=== PATIENT | female | born 1985 | race Caucasian/White ===

== ENCOUNTER 2019-09-08 12:30 | Inpatient (IN) | payer BC, OTHER ==
[2019-09-08] MEDS ORDERED: LACTATED RINGERS 1,000 ML IV ONE ×3 (13:11→16:53)
--- NOTE | 2019-09-08 13:42 | P.HPOB ---
History of Present Illness H&P Date: 09/08/19 Chief Complaint: Ectopic This is a 34-year-old female 8 para 2 with a last menstrual period of 07/15/2019, who presents with a right tubal ectopic with heartbeat noted on ultrasound today. She denies any bleeding or cramping. She does have some slight pain on her left adnexal region. Patient underwent ultrasound today after she was seen at the care center and was told that she had a sac measuring 5 weeks but no pole noted. She was sent for official ultrasound and the findings did show a right tubal measuring 8 weeks with a heartbeat of 170s. Obstetrical history: . History of 2 vaginal deliveries at term. History of 2 termination of pregnancies and 3 miscarriages. Gynecologic history: No history of sexual transmitted diseases. She does have a history of a LEEP procedure in 2002 for high-grade. Social history: She is . She works part-time. Review of Systems Constitutional: Denies chills, Denies fever Eyes: denies blurred vision, denies pain Ears, nose, mouth and throat: Denies headache, Denies sore throat Cardiovascular: Denies chest pain, Denies shortness of breath Respiratory: Denies cough Gastrointestinal: Denies abdominal pain, Denies diarrhea, Denies nausea, Denies vomiting Genitourinary: Reports , Denies pelvic pain Past Medical History Past Medical History: No Reported History Additional Past Medical History / Comment(s): Right tubal ectopic History of Any Multi-Drug Resistant Organisms: None Reported Past Surgical History: Hernia Repair (Umbilical hernia repair) Additional Past Surgical History / Comment(s): D&C 2; LEEP procedure Past Psychological History: No Psychological Hx Reported Smoking Status: Former smoker Past Alcohol Use History: None Reported Past Drug Use History: None Reported Medications and Allergies Home Medications Medication Instructions Recorded Confirmed Type Aqd-[id number]-Xptcr Acid 1 cap PO DAILY 09/08/19 09/08/19 History [-U Capsule (formulary)] Allergies Allergy/AdvReac Type Severity Reaction Status Date / Time No Known Allergies Allergy Verified 09/08/19 13:02 Exam Osteopathic Statement: *. No significant issues noted on an osteopathic structural exam other than those noted in the History and Physical/Consult. Vital Signs Temp Pulse Resp BP Pulse Ox 09/08/19 13:04 98.3 F 90 16 131/80 100 Intake and Output 09/07/19 09/08/19 09/08/19 22:59 06:59 14:59 Other: Weight 65.8 kg HEENT: Within normal limits Heart: Regular rate and rhythm Lungs: Clear to auscultation bilaterally Abdomen: Soft, nontender Pelvic exam: Uterus is slightly enlarged, mid position, with no adnexal masses palpated. There is some tenderness noted slightly higher up in the right adnexal region. Extremities: Negative Homans Assessment and Plan (1) Ectopic Current Visit: Yes Status: Acute Code(s): O00.90 - UNSPECIFIED ECTOPIC WITHOUT INTRAUTERINE SNOMED Code(s): 16272976 Plan: Proceed with exploratory laparotomy with possible right salpingostomy, possible right salpingectomy. I have discussed the risks, benefits, and alternative therapies for the above- mentioned procedure and for both sedation/anesthesia as well as necessary blood products administration, if indicated, as they pertain to this patient. The patient has indicated her understanding and acceptance of the risks and procedures discussed.
[2019-09-08] MEDS ORDERED: fentaNYL (PF) 50 MCG/ML 2 ML AMP ONE (15:09)
[2019-09-08] MEDS ORDERED: MIDAZOLAM 2 MG/2 ML VIAL ONE (15:09)
[2019-09-08] MEDS ORDERED: PROPOFOL 10 MG/ML 20 ML VIAL IV ONE (15:09)
[2019-09-08] MEDS ORDERED: ROCURONIUM BROMIDE 10 MG/ML 5 ML VIAL IV ONE (15:09)
[2019-09-08] MEDS ORDERED: SUCCINYLCHOLINE CHLORIDE 100 MG/5 ML SYR IV ONE (15:09)
[2019-09-08] MEDS ORDERED: ceFAZolin 1,000 MG VIAL IVPB ONE (15:20)
--- NOTE | 2019-09-08 16:19 | P.OP ---
Date of Procedure: 09/08/19 Preoperative Diagnosis: Ectopic Postoperative Diagnosis: Right tubal ectopic Left tubal hydrosalpinx Procedure(s) Performed: Exploratory laparotomy Right partial salpingectomy Drainage of left hydrosalpinx Anesthesia: DORI Surgeon: Penelope De Leon Nutrition Representative #1: Lino Orosco Estimated Blood Loss (ml): 30 Pathology: other (Right tubal ectopic with portion of right fallopian tube) Condition: stable Disposition: floor Indications for Procedure: This is a 34-year-old female 8 para 2 who presents after ultrasound today showing a right tubal ectopic with a heartbeat measuring 8 weeks. She denied any bleeding or significant pain. She has consented to an exploratory laparotomy with possible right salpingostomy, possible right salpingectomy. I have discussed the risks, benefits, and alternative therapies for the above- mentioned procedure and for both sedation/anesthesia as well as necessary blood products administration, if indicated, as they pertain to this patient. The patient has indicated her understanding and acceptance of the risks and procedures discussed. Operative Findings: The right fallopian tube is significantly dilated on the distal portion of the fallopian tube with ectopic present. The end of the right fallopian tube is blocked. The left fallopian tube is dilated on its distal and with a hydrosalpinx and is blocked also. No significant blood was noted in the cul-de-sac. Description of Procedure: The patient is taken to the operating room where she is placed in the dorsal supine position after Man catheter is inserted. She is prepped and draped in the normal sterile fashion. A small Pfannenstiel skin incision is made with a scalpel. Second knife was used to carry the incision down to the underlying l tree of fascia. The fascia is nicked in the midline and extended laterally bilaterally with Betancourt scissors. Next the superior aspect of the fascial incision was grasped with Maxime clamps and dissected off the underlying rectus muscle in the midline with Betancourt scissors. Next the inferior aspect of the fascial incision was grasped with Maxime clamps, and dissected off the underlying rectus muscle in the midline with Betancourt scissors. Next the peritoneum was identified and entered bluntly with a hemostat. The peritoneal layer is extended superiorly and in fairly with Metzenbaum scissors. Next a small Freddy retractor is placed and a bladder blade is inserted. A 3 yard moist laparotomy sponge is used to pack the bowels. The left fallopian tube is brought up through the incision. The distal and is very dilated and appears to be blocked at the end. Bovie cautery is used to open up the tube. Upon opening the tube, the nonviable fetus is delivered along with placental tissue. The placental tissue is then removed with forceps. Despite milking the tube, there still appeared to be more placental tissue that was still actively bleeding. Despite cautery to control the bleeding, it was decided that the tube was too damaged to be able to carry another . In addition it was blocked at the end which would make her risk for another ectopic very high. The distal portion of the tube was then clamped with a Luis clamp, cut with Metzenbaum scissors, and then sutured with 0 Vicryl suture in interrupted [id number] stitch. The remaining portion of the tube is sent with the ectopic . Excellent hemostasis is noted. Attention is then turned to the left fallopian tube. The left fallopian tube is curled up the and and dilated with hydrosalpinx. A small incision is made in the end of the tube with Bovie cautery and a large amount of fluid was released and the hydrosalpinx did release. A few small adhesions were also released from the ovary to the tube. Excellent hemostasis is noted. Copious irrigation is carried out. All sponge counts are correct. Next the peritoneal layer is closed with 0 Vicryl suture in a running fashion. The muscle is reapproximated with 0 Vicryl suture in interrupted fashion. The fascia is then closed with 0 PDS suture with 2 sutures meeting in the midline and the knots buried on either side and in the midline. The subcutaneous tissue was then closed with 2-0 Vicryl suture in a running fashion. Skin incision is closed with nasreen. All sponge and needle counts are correct. The patient is then taken to recovery room in stable condition.
[2019-09-08] MEDS: HYDROmorphone 1 MG/ML 1 ML SYRINGE IVP ONE ×3 (16:26→17:14)
[2019-09-08] MEDS ORDERED: diphenhydrAMINE 50 MG/ML 1 ML VIAL IVP ONE (16:40)
[2019-09-08] MEDS ORDERED: diphenhydrAMINE 50 MG/ML 1 ML VIAL IVP PRN (17:34)
[2019-09-08] MEDS ORDERED: ONDANSETRON 4 MG/2 ML VIAL IVP PRN (17:34)
[2019-09-08] MEDS ORDERED: SIMETHICONE 80 MG CHEWABLE PO PRN (17:34)
[2019-09-08] MEDS ORDERED: HYDROcodone/APAP 7.5-325MG 1 EACH TAB PO PRN (17:34)
[2019-09-08] MEDS ORDERED: LACTATED RINGERS 1,000 ML IV SCH (17:34)
[2019-09-08] MEDS ORDERED: METOCLOPRAMIDE 5 MG/ML 2 ML VIAL IVP PRN (17:34)
[2019-09-08] MEDS ORDERED: ZOLPIDEM 5 MG TAB PO PRN (17:34)
[2019-09-08] MEDS ORDERED: HYDROcodone/APAP 5-325MG 1 EACH TAB PO PRN (17:34)
[2019-09-08] MEDS: KETOROLAC 30 MG/ML 1 ML VIAL IVP PRN (17:54)
[2019-09-08 19:30] VITALS: RESP 16
[2019-09-08] MEDS: SENNOSIDES-DOCUSATE SODIUM 1 EACH TAB PO SCH (21:54)
[2019-09-09] MEDS: KETOROLAC 30 MG/ML 1 ML VIAL IVP PRN ×2 (03:14→09:19)
[2019-09-09 06:29] LABS: Basophils % (A) 0 %; Eosinophils % (A) 0 %; HCT 33.6 % (34.0-46.0); Lymphocytes % (A) 17 %; MCH 29.4 pg (25.0-35.0); MCHC 32.7 g/dL (31.0-37.0); Mean Platelet Volume 7.6; Monocytes # (A) 0.6 k/uL (0-1.0); Monocytes % (A) 5 %; Neutrophils # (A) 9.1 k/uL (1.3-7.7); Neutrophils % (A) 76 %; Platelet Count 225 k/uL (150-450); RBC 3.73 m/uL (3.80-5.40); RDW 13.2 % (11.5-15.5); WBC 11.9 k/uL (3.8-10.6)
[2019-09-09 08:10] VITALS: BP 95/52; PULSE 65; TEMP 98.6
[2019-09-09] MEDS ORDERED: PRENATAL VIT-IRON-FOLIC ACID 1 EACH CAP PO SCH (09:00)
[2019-09-09] MEDS: SENNOSIDES-DOCUSATE SODIUM 1 EACH TAB PO SCH (09:09)
--- NOTE | 2019-09-09 09:09 | P.DS ---
Providers Date of admission: 09/08/19 12:41 Expected date of discharge: 09/09/19 Attending physician: Penelope De Leon Primary care physician: Stated None - Discharge Diagnosis(es) (1) Ectopic Current Visit: Yes Status: Acute Hospital Course: This is a 34-year-old female who underwent a exploratory laparotomy with right partial salpingectomy due to right ectopic on 09/08/2019. Postoperatively she has done well. She is passing flatus but no bowel movement yet. She is ambulating. Her pain is fairly well controlled. She is urinating. She denies any bleeding. Vital signs are stable. Abdomen is soft with positive bowel sounds 4. Incision is clean dry and intact with nasreen in place. Extremities show negative Homans. Impression is status post exploratory laparotomy with right partial salpingectomy postoperative day #1. Plan is to discharge home today per patient request. She will be given a prescription for ibuprofen and Delevan. She has signed a consent form for opioid use and denies any use at home. She may shower, but no tub baths for 1 week. No intercourse. She is advised follow-up in the office on Thursday for a postoperative check and staple removal. She is advised to call if she has any further questions or concerns prior to her appointment time. Procedures: Exploratory laparotomy with right partial salpingectomy on 09/08/2019 Patient Condition at Discharge: Stable Plan - Discharge Summary Discharge Rx Participant: No New Discharge Prescriptions: New Ibuprofen [Motrin] 600 mg PO Q6HR PRN #60 tab PRN Reason: Moderate Pain HYDROcodone/APAP 5-325MG [Delevan 5-325] 1 each PO Q6HR PRN #30 tab PRN Reason: Moderate Pain No Action Pbi-[id number]-Frdvj Acid [-U Capsule (formulary)] 1 cap PO DAILY Discharge Medication List Qjl-Mziq-Ieopx Acid [-U Capsule (formulary)] 1 cap PO DAILY 09/08/19 [History] HYDROcodone/APAP 5-325MG [Delevan 5-325] 1 each PO Q6HR PRN #30 tab 09/09/19 [Rx] Ibuprofen [Motrin] 600 mg PO Q6HR PRN #60 tab 09/09/19 [Rx] Follow up Appointment(s)/Referral(s): Penelope De Leon DO [Doctor of Osteopathic Medicine] - 09/12/19 Activity/Diet/Wound Care/Special Instructions: Activity as tolerated. Diet as tolerated. May shower, but no tub baths for 1 week. No intercourse. No driving while on narcotic pain medication. Discharge Disposition: HOME SELF-CARE
[2019-09-09] MEDS ORDERED: ACETAMINOPHEN TAB 325 MG TAB PO PRN (15:03)
== END 2019-09-09 10:20 | disposition home or self-care (01) | DRG 819 ==
LOC: 4FBP 12:41
PROVIDERS: ADMIT Obstetrics & Gynecology; ATTEND Obstetrics & Gynecology
DX: O00.101 Right tubal pregnancy without intrauterine pregnancy (principal); N70.11 Chronic salpingitis; Z87.891 Personal history of nicotine dependence
CPT/HCPCS: 85025; 88305

== ENCOUNTER → 2019-09-08 | Outpatient (CLI) | payer BC, OTHER ==
--- NOTE | 2019-09-08 12:13 | US ---
EXAMINATION TYPE: Transabdominal DATE OF EXAM: 09/08/2019 11:49 AM COMPARISON: NONE CLINICAL HISTORY: O76 no heart tones. Patient had an ultrasound at the [facility] wh ere they told her she had a gestational sac measuring 5 weeks. pelvic Pain, no bleeding. EXAM PERFORMED: Transvaginal (TV) and Transabdominal (TA) EXAM MEASUREMENTS: GESTATIONAL AGE / DATING Physician Established: Not yet established Dates by LMP: (7 weeks/5 days) EDC: 04/21/2020 Dates by First Scan: No previous this is first scan at this facility ( Dates by Current Scan for: (8 weeks/0 days) EDC: Ectopic MATERNAL ANATOMY Uterus: 10.2 x 4.8 x 5.3 cm Right Ovary: 2.4 x 1.5 x 1.7 cm Left Ovary: 2.2 x 0.9 x 1.7 cm Post CDS / Adnexa: Moderate amount of free fluid visualized Presence of free fluid: Yes Presence of corpus luteal cyst: Yes, right ovary 1.8 x 1.1 x 1.3 cm Presence of subchorionic bleed: No GESTATION / SURVEY CRL: 1.6 cm (8 weeks/0 days) Yolk Sac (normal less than 6mm): 0.2 cm Heart Rate: 172 bpm Rhythm: Normal IUP: Viable Ectopic Date of LMP: 07/16/2019 Beta HcG (if available): Not available at this time Live ectopic visualized within the right adnexa measuring 8 wks/0 days with a heartrate of 172 bpm. W ithin the left adnexa there is a complex cystic area adjacent to the left ovary measuring 2.8 x 1.9 x 3.8 cm. Preliminary results called to Dr De Leon at time of exam, patient sent to office. IMPRESSION: Ectopic right adnexal region. Current estimate of gestational age is 8 weeks 0 days based o n current crown-rump length measurement. Cardiac activity was observed at 172 bpm. Moderate free flu id is within the pelvis. A Red level critical message alert has been initiated for Penelope De Leon DO via the [facility] System on 09/08/2019 12:10 PM. This message alert has been sent to DO cora Mckeon the preferences provided by the clinician for the receipt of Radiology Critical Findings. Message ID [id number].
== END | disposition home or self-care (01) ==
LOC: RADUSWWP 11:07
PROVIDERS: ATTEND Obstetrics & Gynecology
DX: O00.80 Other ectopic pregnancy without intrauterine pregnancy (principal); Z3A.08 8 weeks gestation of pregnancy; O02.1 Missed abortion
CPT/HCPCS: 76801; 76817

== ENCOUNTER → 2020-06-06 | Outpatient (CLI) | payer BC, OTHER | END | disposition home or self-care (01) | LOC: LABWHC1 10:44 | PROVIDERS: ATTEND Emergency Medicine | DX: Z20.828 Contact with and (suspected) exposure to other viral communicable diseases (principal) | CPT/HCPCS: U0003; C9803 ==

== ENCOUNTER 2020-09-07 19:22 | Emergency (ER) | payer BC, OTHER ==
[2020-09-07 20:07] VITALS: BP 142/93; PULSE 92; RESP 20; TEMP 98.1
[2020-09-07] MEDS ORDERED: HYDROcodone/APAP 5-325MG 1 EACH TAB PO STA (22:01)
[2020-09-07] MEDS ORDERED: KETOROLAC 15 MG/ML 1 ML VIAL IM STA (22:01)
--- NOTE | 2020-09-07 22:19 | ED ---
General Adult HPI - General Chief complaint: Recheck/Abnormal Lab/Rx Stated complaint: leg pain Time Seen by Provider: 09/07/20 21:32 Source: patient Mode of arrival: wheelchair Limitations: no limitations - History of Present Illness Initial comments: 35-year-old female patient presents to the emergency department today for evaluation of left leg pain. Patient states 3 days ago she woke from sleep with pain to the left thigh. States it is mostly in the anterior aspect of the thigh and now is over the medial aspect and in the groin. Denies any fever or chills. She believes her leg is slightly swollen. Denies any known injury. Denies any new exercise regimen. Denies history of similar symptoms. She is also reporting an episode of bloody vomitus a couple of days ago. States she did also have bleeding from her nose and feels bloody drainage down the back of her throat. No vomiting or nasal bleeding today. She is eating and drinking. P atient denies any recent rash, cough, shortness of breath, chest pain, abdominal pain, diarrhea, constipation, back pain, numbness, tingling, dizziness, weakness, hematuria, dysuria, urinary urgency, urinary frequency, headache, visual changes, or any other complaints. - Related Data Previous Rx's Medication Instructions Recorded Naproxen [EC-Naprosyn] 500 mg PO BID PRN #30 tablet. 09/07/20 Allergies Allergy/AdvReac Type Severity Reaction Status Date / Time No Known Allergies Allergy Verified 09/07/20 23:38 Review of Systems ROS Statement: Those systems with pertinent positive or pertinent negative responses have been documented in the HPI. ROS Other: All systems not noted in ROS Statement are negative. Past Medical History Past Medical History: No Reported History Additional Past Medical History / Comment(s): Right tubal ectopic History of Any Multi-Drug Resistant Organisms: None Reported Past Surgical History: Hernia Repair Additional Past Surgical History / Comment(s): D&C 2; LEEP procedure Past Psychological History: No Psychological Hx Reported Smoking Status: Never smoker Past Alcohol Use History: None Reported Past Drug Use History: None Reported General Exam Limitations: no limitations General appearance: alert, in no apparent distress, other (This is a well- developed, well-nourished adult female patient in no acute distress. Vital signs upon presentation are temperature 98.1F, pulse 92, respirations 20, blood pressure 142/93, pulse ox 99% on room air.) Eye exam: Present: normal appearance, PERRL, EOMI. Absent: scleral icterus, conjunctival injection, periorbital swelling ENT exam: Present: normal exam, normal oropharynx, mucous membranes moist Respiratory exam: Present: normal lung sounds bilaterally. Absent: respiratory distress, wheezes, rales, rhonchi, stridor Cardiovascular Exam: Present: regular rate, normal rhythm, normal heart sounds. Absent: systolic murmur, diastolic murmur, rubs, gallop, clicks GI/Abdominal exam: Present: soft, normal bowel sounds. Absent: distended, tenderness, guarding, rebound, rigid Extremities exam: Present: normal inspection, full ROM, tenderness (Over the left anterior and medial thigh), normal capillary refill, other (Skin to the left leg is pink, warm, dry. Cap refill less than 3 seconds. Pedal and posttibial pulses are 2+ and equal bilaterally.). Absent: pedal edema, joint swelling, calf tenderness Neurological exam: Present: alert, oriented X3, CN II-XII intact Psychiatric exam: Present: normal affect, normal mood Skin exam: Present: warm, dry, intact, normal color. Absent: rash Course Vital Signs 09/07/20 20:03 Temperature 98.1 F Pulse Rate 92 Respiratory 20 Rate Blood Pressure 142/93 O2 Sat by Pulse 99 Oximetry Medical Decision Making - Medical Decision Making 35-year-old female patient presents to the emergency department today for evaluation of left thigh pain. Present for the last couple of days. No injury. Physical examination is unremarkable. She is neurovascularly intact. Ultrasound of the leg showed no evidence for DVT. She did have improvement of pain with pain medication. To be discharged with prescription for pain medication. Instructed to follow-up with the primary care physician, one was recommended for her. Return parameters were discussed in detail. She verbalizes understanding and agrees with this plan. Case discussed with my attending Dr. Vallejo. - Radiology Data Radiology results: report reviewed, image reviewed To sound of the left lower extremity was obtained. Report reviewed in its entirety. Impression by Dr. Ruiz shows no evidence for DVT. Disposition Clinical Impression: Leg pain, Epistaxis Disposition: HOME SELF-CARE Condition: Good Instructions (If sedation given, give patient instructions): Nosebleed (ED), Leg Pain (ED) Additional Instructions: Take medications as directed. Follow-up with your primary care physician for recheck in 1-2 days. Return to the emergency department for any new, worsening, or concerning symptoms. Prescriptions: Naproxen [EC-Naprosyn] 500 mg PO BID PRN #30 tablet.dr [place] Reason: Pain Is patient prescribed a controlled substance at d/c from ED?: No Referrals: Dez Lema [STAFF PHYSICIAN] - 1-2 days Time of Disposition: 23:38
--- NOTE | 2020-09-07 23:05 | US ---
EXAMINATION TYPE: US venous doppler duplex LE LT DATE OF EXAM: 09/07/2020 10:02 PM COMPARISON: NONE CLINICAL HISTORY: Left leg pain. Left leg pain SIDE PERFORMED: Left TECHNIQUE: The lower extremity deep venous system is examined utilizing real time linear array sonog yusuf with graded compression, doppler sonography and color-flow sonography. VESSELS IMAGED: Common Femoral Vein Deep Femoral Vein Greater Saphenous Vein * Femoral Vein Popliteal Vein Small Saphenous Vein * Proximal Calf Veins (* superficial vessels) Left Leg: Negative for DVT IMPRESSION: No evidence of deep vein thrombosis in the left leg.
[2020-09-07] MEDS ORDERED: ACET/COD 300 MG/30 MG STARTER PACK 6 TAB BTL PO STA (23:37)
== END 2020-09-07 23:45 | disposition home or self-care (01) ==
LOC: EC 19:22
DX: M79.652 Pain in left thigh (principal); R04.0 Epistaxis
CPT/HCPCS: 93971; 99283; 96372; J1885

== ENCOUNTER 2021-02-19 20:03 | Emergency (ER) | payer BC, OTHER ==
[2021-02-19 20:25] VITALS: BP 146/88; PULSE 93; RESP 20; TEMP 98.4
[2021-02-19] MEDS ORDERED: MAG HYDROX/AL HYDROX/SIMETH 30 ML, HYOSCYAMINE ELIXIR 10 ML, LIDOCAINE VISCOUS 2% 10 ML PO STA ×3 (20:58)
--- NOTE | 2021-02-19 21:11 | ED ---
URI HPI - General Chief Complaint: Upper Respiratory Infection Stated Complaint: Chest Pain,Sore Throat Time Seen by Provider: 02/19/21 20:28 Source: patient, RN notes reviewed Mode of arrival: ambulatory Limitations: no limitations - History of Present Illness Initial Comments: 35-year-old female presents to the emergency Department withchief complaint of congestion, sore throat. Patient has ongoing acid reflux issues causing heartburn. Patient states that she is on seizure medication is not was taken. No recent fevers or chills she was exposed to Covid on Thursday. No complaints of palpitations no headache dizziness. - Related Data Home Medications Medication Instructions Recorded Confirmed Omeprazole 20 mg PO DAILY 02/19/21 02/19/21 Previous Rx's Medication Instructions Recorded Pantoprazole [Protonix] 40 mg PO DAILY #30 tab 02/19/21 Allergies Allergy/AdvReac Type Severity Reaction Status Date / Time No Known Allergies Allergy Verified 02/19/21 21:41 Review of Systems ROS Statement: Those systems with pertinent positive or pertinent negative responses have been documented in the HPI. ROS Other: All systems not noted in ROS Statement are negative. Past Medical History Past Medical History: GERD/Reflux Additional Past Medical History / Comment(s): Right tubal ectopic History of Any Multi-Drug Resistant Organisms: None Reported Past Surgical History: Hernia Repair Additional Past Surgical History / Comment(s): D&C 2; LEEP procedure Past Psychological History: No Psychological Hx Reported Smoking Status: Never smoker Past Alcohol Use History: Daily Past Drug Use History: None Reported General Exam Limitations: no limitations General appearance: alert, in no apparent distress Head exam: Present: atraumatic, normocephalic, normal inspection Eye exam: Present: normal appearance, PERRL, EOMI. Absent: scleral icterus, conjunctival injection, periorbital swelling ENT exam: Present: normal exam, normal oropharynx, mucous membranes moist Neck exam: Present: normal inspection. Absent: tenderness, meningismus, lymphadenopathy Respiratory exam: Present: normal lung sounds bilaterally. Absent: respiratory distress, wheezes, rales, rhonchi, stridor Cardiovascular Exam: Present: regular rate, normal rhythm, normal heart sounds. Absent: systolic murmur, diastolic murmur, rubs, gallop, clicks GI/Abdominal exam: Present: soft, tenderness (Epigastric), normal bowel sounds. Absent: distended, guarding, rebound, rigid Course Vital Signs 02/19/21 20:22 Temperature 98.4 F Pulse Rate 93 Respiratory 20 Rate Blood Pressure 146/88 O2 Sat by Pulse 97 Oximetry Medical Decision Making - Medical Decision Making EKG, chest x-ray, strep, COVID-19 all unremarkable. Patient discharged with and antacids return parameters were discussed patient with follow-up with GI. - Lab Data Lab Results 02/19/21 02/19/21 Range/Units 21:20 21:20 Coronavirus (PCR) Not Detected (Not Detectd) Group A Strep Rapid Negative (Negative) Disposition Clinical Impression: GERD (gastroesophageal reflux disease), Encounter for laboratory testing for COVID-19 virus Disposition: HOME SELF-CARE Condition: Stable Instructions (If sedation given, give patient instructions): Diet for Stomach Ulcers and Gastritis (ED), Gastroesophageal Reflux Disease (ED) Additional Instructions: Please return to the Emergency Department if symptoms worsen or any other con cerns. Prescriptions: Pantoprazole [Protonix] 40 mg PO DAILY #30 tab Is patient prescribed a controlled substance at d/c from ED?: No Referrals: None,Stated [Primary Care Provider] - 1-2 days Tiana Mobley MD [STAFF PHYSICIAN] - 1-2 days Time of Disposition: 22:20
--- NOTE | 2021-02-19 22:11 | XR ---
EXAMINATION TYPE: XR chest 2V DATE OF EXAM: 02/19/2021 COMPARISON: NONE HISTORY: Cough TECHNIQUE: Frontal and lateral views of the chest are obtained. FINDINGS: There is no focal air space opacity, pleural effusion, or pneumothorax seen. The cardiac silhouette size is within normal limits. The osseous structures are intact. IMPRESSION: No acute cardiopulmonary process.
== END 2021-02-19 22:50 | disposition home or self-care (01) ==
LOC: EC 20:03
DX: K21.9 Gastro-esophageal reflux disease without esophagitis (principal); Z20.822 Contact with and (suspected) exposure to COVID-19
CPT/HCPCS: 71046; 87081; 87430; 87635; 93005; 99283

== ENCOUNTER → 2021-08-14 | Outpatient (CLI) | payer BC, OTHER ==
--- NOTE | 2021-08-15 09:28 | MR ---
EXAMINATION TYPE: MR brain wo con DATE OF EXAM: 08/14/2021 COMPARISON: NONE HISTORY: Headaches, lightheaded, N & V intermittently x 1 year. TECHNIQUE: Multiplanar, multisequence imaging of the brain and brainstem is performed without IV cont rast. FINDINGS: Diffusion weighted images demonstrate no evidence of a recent infarct or other diffusion abnormality. There is no extraaxial fluid collection or significant white matter signal abnormality. The ventricu lar system and cisternal spaces are normal in size and appearance. The brain volume is age appropria te. Midline structures demonstrate normal morphology. The craniocervical junction appears within normal limits. Normal vascular flow voids are present. The visualized sinuses are clear and the globes are i ntact. No suspicious opacification of the mastoid air cells. IMPRESSION: No suspicious findings seen to account for patient's symptoms.
== END | disposition home or self-care (01) ==
LOC: RADMRIMAIN 15:22
PROVIDERS: ATTEND Family Medicine
DX: R51.9 Headache, unspecified (principal); R42 Dizziness and giddiness
CPT/HCPCS: 70551